=== PATIENT | female | born 1955 | race Caucasian/White ===

== ENCOUNTER 2017-06-28 17:25 | Emergency (ER) | payer BC ==
[~2017-06-28] VITALS: Ht 165.1 cm; Wt 60.4 kg
[2017-06-28 19:25] VITALS: BP 136/63
== END 2017-06-28 19:26 | disposition home or self-care (01) ==
LOC: EME 17:25
DX: M25.562 Pain in left knee (principal); F41.9 Anxiety disorder, unspecified; E78.5 Hyperlipidemia, unspecified; M19.90 Unspecified osteoarthritis, unspecified site; Z88.8 Allergy status to other drugs, medicaments and biological substances; Z88.1 Allergy status to other antibiotic agents; Z91.040 Latex allergy status
CPT/HCPCS: 73564; 99281; 99284